=== PATIENT | female | born 1975 | race Caucasian/White ===

== ENCOUNTER 2018-06-27 16:48 | Emergency (ER) | payer OTHER ==
[~2018-06-27] VITALS: Ht 160 cm; Wt 50.0 kg
[~2018-06-27 16:48] MED LIST: 5-HTP100 MG PO; AMOXICILLIN500 MG OR; BENADRY2 EX; BENADRYL 50MG C50 MG PO; GABAPENTIN100 MG OR; HYDROXYZ HCL10 MG OR; LEXAPRO20 MG OR; LORTAB 5 OR; ROZEREM8 MG OR
[2018-06-27 17:59] LABS: HEMATOCRIT 26.5 % (37.0-47.0); HEMOGLOBIN 9.2 g/dl (12.0-16.0); IMMATURE GRANULOCYTES 0.6 % (0.0-5.0); MEAN CELL VOLUME 92.3 fL CALC (80.0-100.0); MEAN CORPUSCULAR HGB 32.1 pG CALC (26.0-32.0); MEAN CORPUSCULAR HGB CONC 34.7 g/L CALC (32.0-36.0); NEUT# 4.3 thou/uL (2.00-7.15); RED BLOOD COUNT 2.87 mill/uL (4.20-5.60); RED CELL DISTRI WIDTH 13.6 % (11.5-15.5)
[2018-06-27 18:17] LABS: ALBUMIN 3.8 g/dL (3.2-5.0); ALKALINE PHOSPHATASE 155 u/l (38-126); ANION GAP 17 (6-22 (CALC)); BILIRUBIN, TOTAL 1.8 mg/dL (0.0-1.4); BUN 16 mg/dL (7-17); BUN/CREATININE RATIO 31 (12-20 (CALC)); CARBON DIOXIDE 39 mmol/l (22-30); CHLORIDE 81 mmol/l (95-108); CREATININE 0.5 mg/dL (0.5-1.0); ETHYL ALCOHOL 0 mg/dl (0-30); GFR > 60 ML/MIN (>=60 (CALC)); GFR FOR AFR.AMER. > 60 ML/MIN (>=60 (CALC)); SGOT/AST 150 u/l (14-36); SGPT/ALT 63 u/l (9-52); SODIUM 135 mmol/l (137-146); TOTAL PROTEIN 7.5 g/dL (6.3-8.2)
[2018-06-27 18:20] LABS: POTASSIUM 2.3 mmol/l (3.5-5.1)
[2018-06-27 20:15] VITALS: BP 104/61
== END 2018-06-27 20:15 | disposition short-term general hospital (02) | DRG 93 ==
LOC: ED 16:48
PROVIDERS: Family Medicine
DX: R26.9 Unspecified abnormalities of gait and mobility (principal); H53.8 Other visual disturbances; R41.0 Disorientation, unspecified; R63.0 Anorexia; F10.20 Alcohol dependence, uncomplicated; F31.9 Bipolar disorder, unspecified; F17.210 Nicotine dependence, cigarettes, uncomplicated